=== PATIENT | female | born 1955 | race Caucasian/White ===

== ENCOUNTER 2024-06-24 14:31 | Inpatient (IN) | payer OTHER ==
[~2024-06-24] VITALS: Ht 144.8 cm; Wt 76.4 kg
[2024-06-24] VITALS (9 sets, daily range): BP systolic 80–112; BP diastolic 37–56; PULSE 80–142; RESP 10–26; TEMP 98.2–107.9; O2SAT 93–100
[2024-06-24 15:13] LABS: BASOPHILS % (AUTO) 0.7 % (0.0-2.0); EOSINOPHILS % (AUTO) 0.2 % (0.0-4.0); HEMATOCRIT 32.6 % (36-48); HEMOGLOBIN 10.9 g/dL (12.0-16.0); LYMPHOCYTES # (AUTO) 3.6 K/uL (2.5-16.5); LYMPHOCYTES % (AUTO) 57.3 % (20.5-51.1); MEAN CORPUSCULAR HEMOGLOBIN 29 pg (27-31); MEAN CORPUSCULAR HGB CONC 33 g/dL (33-37); MEAN CORPUSCULAR VOLUME 88.2 fL (80-94); MONOCYTES # (AUTO) 0.1 K/uL (0.8-1.0); MONOCYTES % (AUTO) 2.3 % (1.7-9.3); NEUTROPHILS # (AUTO) 2.5 K/uL (1.8-7.7); NEUTROPHILS % (AUTO) 39.5 % (42.2-75.2); PLATELET COUNT (AUTO) 75 K/uL (140-450); RED BLOOD CELL COUNT(AUTO) 3.69 MIL/uL (4.20-5.40); RED CELL DISTRIBUTION WIDTH 14.8 % (11.6-13.7); WHITE BLOOD COUNT (AUTO) 6.3 K/uL (4.8-10.8)
[2024-06-24 15:17] LABS: ANION GAP 24.2 (8-16); CALCIUM 8.3 mg/dL (8.5-10.1); CREATININE 2.3 mg/dL (0.6-1.3); POTASSIUM 4.2 mmol/L (3.5-5.1)
[2024-06-24 15:33] LABS: LACTIC ACID 8.3 mmol/L (0.4-2.0)
[2024-06-24 16:02] LABS: BLOOD GAS BASE EXCESS -12.1 mmol/L (-2.0-3.0); BLOOD GAS HCO3 11.5 mmol/L (21.0-28.0); BLOOD GAS PCO2 20.9 mmHg (32.0-45.0)
[2024-06-24 16:03] LABS: ALANINE AMINOTRANSFERASE 29 U/L (12-78); ALBUMIN 2.9 g/dL (3.4-5.0); ALCOHOL, BLOOD < 3 mg/dL (<10); ALKALINE PHOSPHATASE 69 U/L (50-136); ASPARTATE AMINOTRANSFERASE 41 U/L (15-37); BILIRUBIN,DIRECT 0.1 mg/dL (0.0-0.3); CREATINE KINASE, TOTAL 334 U/L (26-192); TOTAL BILIRUBIN 0.3 mg/dL (0.0-1.0); TOTAL PROTEIN, SERUM 6.2 g/dL (6.4-8.2)
[2024-06-24 16:03] LABS: BLOOD GAS O2 SAT% 99.6 % (94.0-98.0)
[2024-06-24 16:05] LABS: SALICYLATE < 2.8 mg/dL (2.8-20.0)
[2024-06-24] MEDS ORDERED: cefTRIAXone 1,000 MG VIAL ONE (16:09)
[2024-06-24 16:37] LABS: INR 1.1 (0.8-1.2); PARTIAL THROMBOPLASTIN TIME 23.2 secs (22-35.6); PROTHROMBIN TIME 11.4 secs (10.8-13.4)
[2024-06-24] MEDS: NACL 0.9% 3,000 ML IV ONE (16:58)
[2024-06-24] MEDS: ROCURONIUM 50 MG/5 ML VIAL IV ONE (17:02)
[2024-06-24] MEDS: ETOMIDATE 20 MG/10 ML VIAL IVP ONE (17:04)
[2024-06-24] MEDS ORDERED: ONDANSETRON 4 MG/2 ML VIAL IVP PRN (17:40)
[2024-06-24] MEDS ORDERED: HYDROcodone/APAP 5/325 MG 1 TAB TAB PO PRN (17:40)
[2024-06-24] MEDS ORDERED: MORPHINE SULFATE 2 MG/ML SYR IVP PRN (17:40)
[2024-06-24] MEDS ORDERED: ACETAMINOPHEN 325 MG TAB PO PRN (17:40)
[2024-06-24] MEDS ORDERED: HEPARIN PER PHARMACY MC PRN (17:45)
[2024-06-24] MEDS: ASPIRIN 300 MG SUPP RC ONE (18:56)
[2024-06-24] MEDS: DEXT 5% /NACL 0.9% 1,000 ML IV SCH (19:27)
[2024-06-24] MEDS: hePARIN / DEXT 5% PREMIX 250 ML IV SCH (20:28)
[2024-06-24 20:32] LABS: FLU A ANTIGEN NEGATIVE (NEGATIVE); FLU B ANTIGEN NEGATIVE (NEGATIVE)
[2024-06-24] MEDS ORDERED: PIPERACILLIN/TAZOBACTAM 3.375 GM in DEXTROSE 5% 50 ML IV SCH (21:00)
[2024-06-24] MEDS: NOREPINEPHRINE 4 MG in DEXTROSE 5% 250 ML IV PRN (21:12)
[2024-06-24] MEDS: BLOOD GLUCOSE MONITORING 1 DEV DEV FS SCH (21:19)
[2024-06-24] MEDS: NOREPINEPHRINE 4 MG/4 ML VIAL IV ONE ×2 (21:19→23:35)
[2024-06-24] MEDS: INSULIN LISPRO SLIDING SCALE 100 UNITS/ML VIAL SUBQ PRN (21:20)
[2024-06-24 22:42] LABS: APPEARANCE,URINE CLEAR (CLEAR); BILIRUBIN,URINE NEGATIVE (NEGATIVE); BLOOD, URINE 3+ (NEGATIVE); COLOR,URINE YELLOW (YELLOW); LEUKOCYTE ESTERASE ,URINE NEGATIVE (NEGATIVE); NITRITE, URINE NEGATIVE (NEGATIVE); PROTEIN,URINE 2+ (NEGATIVE); UGLUCOSE 1+ (NEGATIVE); UROBILINOGEN,URINE 0.2 EU/dL (0.2 - 1)
[2024-06-24 22:46] LABS: BACTERIA,URINE 10-30 (MOD) /HPF (None Seen); SQUAMOUS EPITHELIAL CELL,UR 0-3 (FEW) /LPF (0-3 (FEW)); WBC,URINE 0-5 /HPF (0-5)
[2024-06-24 22:47] LABS: MUCUS,URINE 1+ /LPF (None Seen)
[2024-06-24 22:56] LABS: AMPHETAMINE, URINE NEGATIVE ng/ml (NEG <=1000); BARBITURATE, URINE NEGATIVE ng/ml (NEG <=200); BENZODIAZEPINE, URINE NEGATIVE ng/mL (NEG <=200); CANNABINOID, URINE NEGATIVE ng/mL (NEG <=50); COCAINE, URINE NEGATIVE ng/mL (NEG <=300); OPIATE, URINE NEGATIVE ng/mL (NEG <=2000); PHENCYCLIDINE SCREEN,URINE NEGATIVE ng/mL (NEG <=25)
[2024-06-25] VITALS (33 sets, daily range): BP systolic 49–128; BP diastolic 24–91; PULSE 69–106; RESP 20–35; TEMP 97–99.5; O2SAT 91–99
[2024-06-25] MEDS: PIPERACILLIN/TAZOBACTAM 2.25 GM in DEXTROSE 5% 50 ML IV SCH
[2024-06-25] MEDS: PHENYLEPHRINE 10 MG/ML VIAL ONE ×3 (00:47→05:53)
[2024-06-25] MEDS ORDERED: Z-GUARD PASTE TP PRN (00:50)
[2024-06-25] MEDS: NOREPINEPHRINE 4 MG/4 ML VIAL IV ONE ×3 (01:00→05:21)
[2024-06-25] MEDS: PHENYLEPHRINE 10 MG in NACL 0.9% 250 ML IV PRN (01:08)
[2024-06-25] MEDS: NOREPINEPHRINE 16 MG in DEXTROSE 5% 250 ML IV PRN (01:58)
[2024-06-25] MEDS: PHENYLEPHRINE 40 MG in NACL 0.9% 250 ML IV PRN (06:04)
[2024-06-25 08:02] LABS: POTASSIUM 2.3 mmol/L (3.5-5.1)
[2024-06-25 08:03] LABS: ANION GAP 22.4 (8-16); CALCIUM 7.9 mg/dL (8.5-10.1); CARBON DIOXIDE 10.9 mmol/L (21-32); CREATININE 3.4 mg/dL (0.6-1.3)
[2024-06-25 08:09] LABS: BASOPHILS # (AUTO) 0.1 K/uL (0.00-0.22); BASOPHILS % (AUTO) 0.4 % (0.0-2.0); EOSINOPHILS % (AUTO) 0.1 % (0.0-4.0); HEMATOCRIT 41.5 % (36-48); HEMOGLOBIN 13.1 g/dL (12.0-16.0); LYMPHOCYTES % (AUTO) 11.5 % (20.5-51.1); MEAN CORPUSCULAR HEMOGLOBIN 29 pg (27-31); MEAN CORPUSCULAR HGB CONC 32 g/dL (33-37); MEAN CORPUSCULAR VOLUME 91.4 fL (80-94); MONOCYTES # (AUTO) 0.4 K/uL (0.8-1.0); MONOCYTES % (AUTO) 2.4 % (1.7-9.3); NEUTROPHILS # (AUTO) 14.9 K/uL (1.8-7.7); NEUTROPHILS % (AUTO) 85.6 % (42.2-75.2); PLATELET COUNT (AUTO) 43 K/uL (140-450); RED BLOOD CELL COUNT(AUTO) 4.54 MIL/uL (4.20-5.40); WHITE BLOOD COUNT (AUTO) 17.4 K/uL (4.8-10.8)
[2024-06-25] MEDS: KCL 20 MEQ IN 100 mL PREMIX 200 ML IV SCH (08:42)
[2024-06-25] MEDS: SODIUM BICARBONATE 8.4% 100 MEQ in NACL 0.45% 1,000 ML IV SCH (10:11)
[2024-06-25] MEDS: MAG SULF 2000 MG/WATER PREMIX 50 ML IV SCH (10:18)
[2024-06-25] MEDS: KCL 20 MEQ IN 100 mL PREMIX 100 ML IV SCH (11:57)
[2024-06-25 13:05] LABS: BLOOD GAS PCO2 24.4 mmHg (32.0-45.0); BLOOD GAS PH 7.007 (7.350-7.450)
[2024-06-25 13:06] LABS: BLOOD GAS BASE EXCESS -23.9 mmol/L (-2.0-3.0); BLOOD GAS O2 SAT% 94.6 % (94.0-98.0); BLOOD GAS PO2 81.5 mmHg (83.0-108.0)
[2024-06-25] MEDS: SODIUM BICARBONATE 8.4% PFS 50 MEQ/50 ML SYR IVP SCH ×2 (14:20→17:30)
[2024-06-25 16:20] LABS: CREATINE KINASE, TOTAL 8663 U/L (26-192)
[2024-06-25] MEDS: PHENYLEPHRINE 100 MG in NACL 0.9% 250 ML IV PRN (17:13)
[2024-06-25] MEDS ORDERED: SODIUM BICARBONATE 8.4% PFS 50 MEQ/50 ML SYR IVP SCH (17:20)
[2024-06-25 17:43] LABS: BLOOD GAS HCO3 8.4 mmol/L (21.0-28.0); BLOOD GAS PCO2 21.6 mmHg (32.0-45.0); BLOOD GAS PO2 124.2 mmHg (83.0-108.0)
[2024-06-25 17:44] LABS: BLOOD GAS BASE EXCESS -17.4 mmol/L (-2.0-3.0); BLOOD GAS O2 SAT% 98.7 % (94.0-98.0)
[2024-06-25] MEDS: VASOPRESSIN 20 UNITS in NACL 0.9% 100 ML IV PRN (21:44)
[2024-06-25] MEDS: VASOPRESSIN 20 UNITS/ML VIAL ONE (21:57)
[2024-06-26] VITALS (31 sets, daily range): BP systolic 49–142; BP diastolic 33–79; PULSE 43–106; RESP 16–34; TEMP 96.7–99; O2SAT 30–100
[2024-06-26 00:12] LABS: BLOOD GAS BASE EXCESS -22.6 mmol/L (-2.0-3.0); BLOOD GAS HCO3 6.4 mmol/L (21.0-28.0); BLOOD GAS PCO2 23.5 mmHg (32.0-45.0); BLOOD GAS PO2 101.1 mmHg (83.0-108.0)
[2024-06-26] MEDS: VASOPRESSIN 20 UNITS/ML VIAL ONE ×2 (03:43→18:37)
[2024-06-26 05:11] LABS: ALBUMIN 1.7 g/dL (3.4-5.0); ANION GAP 35.7 (8-16); CALCIUM 7.3 mg/dL (8.5-10.1); POTASSIUM 4.5 mmol/L (3.5-5.1); TOTAL BILIRUBIN 1.8 mg/dL (0.0-1.0); TOTAL PROTEIN, SERUM 4.1 g/dL (6.4-8.2)
[2024-06-26 05:21] LABS: CARBON DIOXIDE 9.8 mmol/L (21-32); CREATININE 5.4 mg/dL (0.6-1.3); PHOSPHORUS 9.8 mg/dL (2.5-4.9)
[2024-06-26] MEDS: DEXTROSE 50% 50 ML SYR IVP PRN (05:25)
[2024-06-26] MEDS: SODIUM BICARBONATE 8.4% PFS 50 MEQ/50 ML SYR IVP ONE ×2 (05:42→10:03)
[2024-06-26 05:43] LABS: CREATINE KINASE, TOTAL 14566 U/L (26-192)
[2024-06-26] MEDS: DEXTROSE 50% 50 ML SYR IVP ONE (05:43)
[2024-06-26 07:08] LABS: HEMATOCRIT 38.7 % (36-48); HEMOGLOBIN 12.3 g/dL (12.0-16.0); MEAN CORPUSCULAR HEMOGLOBIN 30 pg (27-31); MEAN CORPUSCULAR HGB CONC 32 g/dL (33-37); MEAN CORPUSCULAR VOLUME 93.3 fL (80-94); RED BLOOD CELL COUNT(AUTO) 4.15 MIL/uL (4.20-5.40); RED CELL DISTRIBUTION WIDTH 17.2 % (11.6-13.7); WHITE BLOOD COUNT (AUTO) 19.7 K/uL (4.8-10.8)
[2024-06-26 07:46] LABS: PLATELET COUNT (AUTO) 9 K/uL (140-450)
[2024-06-26 08:27] LABS: BASOPHILS % (MANUAL) 0 % (0-2); BLASTS, MANUAL % 0 % (0-0); EOSINOPHILS % (MANUAL) 0 % (0-4); LYMPHOCYTES % (MANUAL) 10 % (20-46); METAMYELOCYTES % 0 % (0-0); MONOCYTES % (MANUAL) 3 % (5-12); MYELOCYTES % 0 % (0-0); OTHER CELLS,MANUAL % 0 (0-0); PLASMA CELLS 0; PROMYELOCYTES % 0 % (0-0); SMUDGE CELLS 0
[2024-06-26 08:28] LABS: PLATELET ESTIMATE DECREASED
[2024-06-26 08:29] LABS: ANISOCYTOSIS 1+
[2024-06-26 09:11] LABS: BLOOD GAS HCO3 3.6 mmol/L (21.0-28.0); BLOOD GAS PCO2 19.3 mmHg (32.0-45.0); BLOOD GAS PH 6.884 (7.350-7.450); BLOOD GAS PO2 204.4 mmHg (83.0-108.0)
[2024-06-26 09:12] LABS: BLOOD GAS BASE EXCESS -28.4 mmol/L (-2.0-3.0); BLOOD GAS O2 SAT% 99.3 % (94.0-98.0)
[2024-06-26] MEDS: SODIUM BICARBONATE 8.4% PFS 50 MEQ/50 ML SYR IVP SCH (10:03)
[2024-06-26] MEDS: BLOOD GLUCOSE MONITORING 1 DEV DEV FS SCH (12:00)
[2024-06-26] MEDS: HYDROCORTISONE NA SUCC 100 MG/2 ML VIAL IV SCH (20:34)
[2024-06-27] VITALS: BP 58/41; PULSE 79; RESP 16; O2SAT 62
== END 2024-06-27 05:10 | DRG 922 ==
LOC: MED 14:31 → EDBD 14:31 → MTU 17:42 → MIC 18:04
PROVIDERS: ADMIT Student in an Organized Health Care Education/Training Program; ATTEND Student in an Organized Health Care Education/Training Program
PROC: 5A1945Z Respiratory Ventilation, 24-96 Consecutive Hours (ICD-10-PCS; 2024-06-24)
PROC: 0BH17EZ Insertion of Endotracheal Airway into Trachea, Via Natural or Artificial Opening (ICD-10-PCS; 2024-06-24)
PROC: 02HV33Z Insertion of Infusion Device into Superior Vena Cava, Percutaneous Approach (ICD-10-PCS; principal; 2024-06-25)
PROC: B548ZZA Ultrasonography of Superior Vena Cava, Guidance (ICD-10-PCS; 2024-06-25)
PROC: 4A00X4Z Measurement of Central Nervous Electrical Activity, External Approach (ICD-10-PCS; 2024-06-25)
PROC: 5A12012 Performance of Cardiac Output, Single, Manual (ICD-10-PCS; 2024-06-27)
DX: T67.01XA Heatstroke and sunstroke, initial encounter (principal); G93.41 Metabolic encephalopathy; J96.00 Acute respiratory failure, unspecified whether with hypoxia or hypercapnia; I21.A1 Myocardial infarction type 2; N17.0 Acute kidney failure with tubular necrosis; E87.20 Acidosis, unspecified; I46.9 Cardiac arrest, cause unspecified; Z20.822 Contact with and (suspected) exposure to COVID-19; I10 Essential (primary) hypertension; E87.6 Hypokalemia; D69.6 Thrombocytopenia, unspecified; X30.XXXA Exposure to excessive natural heat, initial encounter; E11.69 Type 2 diabetes mellitus with other specified complication
CPT/HCPCS: 31500; 36415; 36600; 70450; 71045; 80048; 80053; 80076; 80305; 81001; 82550; 82553; 82803; 82948; 83605; 83735; 84100; 84484; 85025; 85610; 85730; 87040; 87070; 87081; 87086; 93005; 94003; 95816; 96361; 96365; 96375; 99291; 99292; G0480; G0482; J0696; J1644; J1720; J1815; J2543; J3475; J3480; J3490; J7030; J7060; Q0092